=== PATIENT | female | born 1965 | race African-American/Black ===

== ENCOUNTER 2017-02-14 22:41 | Emergency (ER) | payer BC, OTHER ==
[2017-02-15] MEDS ORDERED: PREDNISONE 20 MG TABLET PO ONE (02:30)
--- NOTE | 2017-02-15 02:32 | ER Document Report ---
ED Extremity Problem, Upper - General Chief Complaint: Hand Swelling Stated Complaint: FINGER PAIN Time Seen by Provider: 02/15/17 02:11 Notes: Patient is a 51 year old female that comes to the ED for chief complaint of right index finger swelling, purplish color, tingling, and mild discomfort. She denies injury, she denies history of the same, she denies blanching before turn purple. She denies any other symptoms tonight. She states that she is very healthy normally, she only takes vitamins, she has never smoked. She is here visiting on vacation. Past Medical History - General Information source: Patient - Social History Smoking Status: Never Smoker Frequency of alcohol use: None Drug Abuse: None Lives with: Family Family History: Reviewed & Not Pertinent - Medical History Medical History: Negative Surgical Hx: Negative - Immunizations Immunizations up to date: Yes Hx Diphtheria, Pertussis, Tetanus Vaccination: Yes Review of Systems - Review of Systems Constitutional: No symptoms reported EENT: No symptoms reported Cardiovascular: No symptoms reported Respiratory: No symptoms reported Gastrointestinal: No symptoms reported Genitourinary: No symptoms reported Female Genitourinary: No symptoms reported Musculoskeletal: See HPI Skin: No symptoms reported Hematologic/Lymphatic: No symptoms reported Neurological/Psychological: No symptoms reported Physical Exam - Vital signs Vitals: Temp Pulse Resp BP Pulse Ox 97 F L 70 18 119/76 100 02/14/17 23:36 02/14/17 23:36 02/14/17 23:36 02/14/17 23:36 02/14/17 23:36 Interpretation: Normal - General General appearance: Appears well, Alert In distress: None - HEENT Head: Normocephalic, Atraumatic Eyes: Normal Conjunctiva: Normal Extraocular movements intact: Yes Eyelashes: Normal Pupils: PERRL Mouth/Lips: Normal Mucous membranes: Normal Pharynx: Normal Neck: Normal - Respiratory Respiratory status: No respiratory distress Chest status: Nontender Breath sounds: Normal. No: Decreased air movement, Wheezing Chest palpation: Normal - Cardiovascular Rhythm: Regular. No: Tachycardia Heart sounds: Normal auscultation, S1 appreciated, S2 appreciated Murmur: No - Abdominal Inspection: Normal Distension: No distension Bowel sounds: Normal Tenderness: Nontender. No: Tender, Guarding Organomegaly: No organomegaly - Back Back: Normal, Nontender - Extremities General upper extremity: Other - Right hand exam is normal except over the palmar aspect of the right index finger there is mild swelling with slight purplish discoloration extending from just past the DIP and all the way down towards the MCP and slightly over the palmar hand. Area is normal temperature, has normal capillary refill and sensation. Remaining hand examination is normal. General lower extremity: Normal inspection, Nontender, Normal color, Normal ROM , Normal temperature, Normal weight bearing - Neurological Neuro grossly intact: Yes Cognition: Normal Orientation: AAOx4 Ioana Coma Scale Eye Opening: Spontaneous Ioana Coma Scale Verbal: Oriented Ioana Coma Scale Motor: Obeys Commands Ioana Coma Scale Total: 15 Speech: Normal Motor strength normal: LUE, RUE, LLE, RLE Sensory: Normal - Psychological Associated symptoms: Normal affect, Normal mood - Skin Skin Temperature: Warm Skin Moisture: Dry Skin Color: Normal Course - Re-evaluation Re-evalutation: Patient's age, symptoms, and examination are not suggestive of [facility]. Area is not exquisitely tender, has normal temperature, does not appear to be infectious, does not appear to be a blood supply problem. On further inquiry patient admits that [place] and chills mainly with her right index finger. Suspect this is a toxin effect. Discussed with Dr. Grissom , he confirms that this is most likely jellyfish toxin, evaluated the patient and at bedside. Treating with steroids. Discussed return precautions. Patient states understanding and agreement. - Vital Signs Vital signs: Temp Pulse Resp BP Pulse Ox 98.8 F 65 16 111/71 99 02/15/17 02:58 02/15/17 02:58 02/15/17 02:58 02/15/17 02:58 02/15/17 02:58 Discharge - Discharge Clinical Impression: Finger swelling Condition: Stable Disposition: HOME, SELF-CARE Additional Instructions: Your examination is consistent with localized reaction to contact with jellyfish toxin. Take the prednisone as prescribed. Follow-up with primary care. Return to the emergency department for any concerning or worsening symptoms including severe swelling, severe pain, developing redness, fever, or any other concerning symptoms. Prescriptions: Prednisone [Deltasone 10 mg Tablet] 10 mg PO ASDIR PRN #21 tablet PRN Reason:
[2017-02-15 03:01] VITALS: BP 111/71
== END 2017-02-15 02:58 | disposition home or self-care (01) ==
LOC: ER 22:41
DX: M79.89 Other specified soft tissue disorders (principal); R20.2 Paresthesia of skin; Z79.899 Other long term (current) drug therapy
CPT/HCPCS: 99283; J7512